=== PATIENT | male | born 1980 | race Caucasian/White ===

== ENCOUNTER 2019-03-23 18:46 | Emergency (ER) | payer BC ==
[2019-03-23] MEDS ORDERED: Aspirin 81 MG Tab.Chew PO ONE (18:55)
[2019-03-23] MEDS ORDERED: Nitroglycerin 0.4 MG Tab.SL SL PRN (18:55)
[2019-03-23 19:32] LABS: CHLORIDE,CL 104 mmol/L (98-107); SODIUM,NA 142 mmol/L (136-145)
[2019-03-23 19:34] LABS: ANION GAP 15.8 mmol/L (10-20)
--- NOTE | 2019-03-23 19:43 | CR ---
[id number] RAD/RAD Chest PA or AP 1V EXAM: FRONTAL CHEST INDICATION: Chest pain. COMPARISON: None. DISCUSSION: The lungs are mildly hypoinflated with central vascular crowding and mild basilar atelectasis. No infiltrates are identified. Normal heart size. IMPRESSION: 1. Low lung volumes. Otherwise negative. Tyler Banuelos MD 03/23/19 1942 Thank you for allowing us to participate in the care of your patient.
--- NOTE | 2019-03-23 20:01 | EDM.PDOC ---
ED HPI GENERAL MEDICAL PROBLEM - General Chief Complaint: Chest Pain Stated Complaint: CHEST PAINS Time Seen by Provider: 03/23/19 18:50 Source of Information: Reports: Patient History Limitations: Reports: No Limitations - History of Present Illness INITIAL COMMENTS - FREE TEXT/NARRATIVE: Patient presents the ER with ongoing left-sided chest pain right below the breast for 2 hours now patient describes it as a 5 out of 10 sharp and stabbing when it hits it may last a second may last a couple of minutes states it is worse with a deep breath or pushing on the area. States he was at work when it started and he was not doing anything physical. He has no medical issues and takes no medications He has a significant smoking history 1 to 2 packs a day since he was 12 years old Significant cardiac family history Father had MD at 42 grandfather early 50s Onset: Sudden Duration: Hour(s): Location: Reports: Chest Quality: Reports: Stabbing Severity: Mild Improves with: Reports: Rest Worsens with: Reports: Breathing, Movement Associated Symptoms: Reports: No Other Symptoms Treatments DIRECTOR OF BILLING: Denies: Aspirin Chest Pain Pain Score (Numeric/FACES): 5 - Related Data Allergies Allergy/AdvReac Type Severity Reaction Status Date / Time No Known Allergies Allergy Verified 03/23/19 19:55 Home Meds: Home Meds . [No Known Home Meds] 03/23/19 [History] ED ROS GENERAL - Review of Systems Review Of Systems: See Below Constitutional: Reports: No Symptoms HEENT: Reports: No Symptoms Respiratory: Reports: No Symptoms Cardiovascular: Reports: Chest Pain. Denies: Blood Pressure Problem, Claudication, Dyspnea on Exertion, Edema, Lightheadedness, Orthopnea, Palpitations, PND, Syncope Endocrine: Reports: No Symptoms. Denies: Fatigue GI/Abdominal: Reports: No Symptoms. Denies: Nausea, Vomiting : Reports: No Symptoms Musculoskeletal: Reports: No Symptoms Skin: Reports: No Symptoms Neurological: Reports: No Symptoms Psychiatric: Reports: No Symptoms Hematologic/Lymphatic: Reports: No Symptoms Immunologic: Reports: No Symptoms ED EXAM, GENERAL - Physical Exam Exam: See Below Exam Limited By: No Limitations General Appearance: Alert, WD/WN, No Apparent Distress Eye Exam: Bilateral Eye: PERRL Nose: Normal Inspection, Normal Mucosa, No Blood Throat/Mouth: Normal Inspection, Normal Lips, Normal Teeth, Normal Gums, Normal Oropharynx, Normal Voice, No Airway Compromise Neck: Normal Inspection, Supple, Non-Tender, Full Range of Motion. No: Carotid Bruit Respiratory/Chest: No Respiratory Distress, Lungs Clear, Normal Breath Sounds, No Accessory Muscle Use, Other (Positive tenderness to palpation under the left nipple and approximately about a 3 cm area patient states is the same type of pain he has had for the last couple of hours). No: Chest Non-Tender Cardiovascular: Normal Peripheral Pulses, Regular Rate, Rhythm, No Edema, No Gallop, No JVD, No Murmur, No Rub. No: Tachycardia GI/Abdominal: Normal Bowel Sounds, Soft, Non-Tender, No Organomegaly, No Distention. No: Guarding, Rigid, Rebound, Tender Back Exam: Normal Inspection, Full Range of Motion. No: Vertebral Tenderness Extremities: Normal Inspection, Normal Range of Motion, Non-Tender, No Pedal Edema Neurological: Alert, Oriented, CN II-XII Intact, Normal Cognition, Normal Gait, No Motor/Sensory Deficits Psychiatric: Normal Affect, Normal Mood Skin Exam: Warm, Dry, Intact, Normal Color, No Rash Course - Vital Signs Text/Narrative:: CBC BMP troponin chest x-ray EKG 325 of aspirin p.o. nitro 0.4 sublingual Patient rechecked after nitro says he has no pain whatsoever Chest x-ray negative all labs within normal limit first troponin negative will draw second at 2245 Second troponin is negative patient wishes to go home states he will follow-up outpatient with his 's email manager he will call tomorrow and see if he can get in soon as possible he states that if anything changes he will return to the emergency room He will also try to follow-up with a primary care provider in the next 24 hours or 48 hours Blood pressure rechecked 120/80 heart rate is 72 Last Recorded V/S: Last Vital Signs Temp 36.3 C 03/23/19 20:02 Pulse 74 03/23/19 20:02 Resp 18 03/23/19 20:02 BP 154/84 H 03/23/19 20:02 Pulse Ox 95 03/23/19 20:02 - Orders/Labs/Meds Orders: Active Orders 24 hr Category Date Time Status Nitroglycerin [Nitrostat] Med 03/23/19 18:55 Active 0.4 mg SL Q5M PRN Medication Orders Nitroglycerin (Nitrostat) 0.4 mg SL Q5M PRN PRN Reason: Chest Pain Last Admin: 03/23/19 19:07 Dose: 0.4 mg Labs: Laboratory Tests 03/23/19 03/23/19 03/23/19 Range/Units 19:04 19:04 22:45 WBC 9.7 (4.0-10.0) x10^3/uL RBC 4.97 (4.5-6.0) x10^6/uL Hgb 16.3 (14.0-18.0) g/dL Hct 46.8 (40.0-52.0) % MCV 94.2 H (78.0-93.0) fL MCH 32.8 H (26.0-32.0) pg MCHC 34.8 (32.0-36.0) g/dL RDW Coeff of Bri 12.9 (10.0-15.0) % Plt Count 283 (130-400) x10^3/uL Neut % (Auto) 55.3 (50.0-80.0) % Lymph % (Auto) 30.8 (25.0-50.0) % Sabine % (Auto) 11.4 H (2.0-11.0) % Eos % (Auto) 2.2 (0.0-4.0) % Baso % (Auto) 0.3 (0.2-1.2) % Sodium 142 (136-145) mmol/L Potassium 3.8 (3.5-5.1) mmol/L Chloride 104 (98-107) mmol/L Carbon Dioxide 26 (21-32) mmol/L Anion Gap 15.8 (10-20) mmol/L BUN 15 (7-18) mg/dL Creatinine 1.1 (0.70-1.30) mg/dL Est Cr Clr Drug Dosing TNP Estimated GFR (MDRD) > 60 Glucose 88 (74-106) mg/dL Calcium 8.8 (8.5-10.1) mg/dL Troponin I < 0.017 < 0.017 (<=0.056) ng/mL Meds: Medications Generic Name Dose Route Start Last Admin Trade Name Freq PRN Reason Stop Dose Admin Nitroglycerin 0.4 mg 03/23/19 18:55 03/23/19 19:07 Nitrostat SL 0.4 mg Q5M PRN Administration Chest Pain Discontinued Medications Generic Name Dose Route Start Last Admin Trade Name Indu PRN Reason Stop Dose Admin Aspirin 324 mg 03/23/19 18:55 03/23/19 19:03 Aspirin PO 03/23/19 18:56 324 mg ONETIME ONE Administration Departure - Departure Time of Disposition: 23:45 Disposition: Home, Self-Care 01 Condition: Good Clinical Impression: Chest pain Referrals: PCP,Not In Area [Primary Care Provider] - Forms: ED Department Discharge Sepsis Event Note - Focused Exam Vital Signs: Vital Signs Temp Pulse Resp BP BP Pulse Ox 03/23/19 20:02 36.3 C 74 18 154/84 H 95 03/23/19 19:07 145/102 H Date Exam was Performed: 03/23/19 Time Exam was Performed: 23:42 - Problem List & Annotations (1) Chest pain SNOMED Code(s): 02768691 Code(s): R07.9 - CHEST PAIN, UNSPECIFIED Status: Acute Current Visit: Yes - My Orders Last 24 Hours: My Active Orders 03/23/19 18:55 Nitroglycerin [Nitrostat] 0.4 mg SL Q5M PRN - Assessment/Plan Last 24 Hours: My Active Orders 03/23/19 18:55 Nitroglycerin [Nitrostat] 0.4 mg SL Q5M PRN
== END 2019-03-23 23:56 | disposition home or self-care (01) ==
LOC: VM.ED 18:46
DX: R07.9 Chest pain, unspecified (principal)
CPT/HCPCS: 36415; 71045; 80048; 84484; 85025; 93005; 99285; A9270